=== PATIENT | female | born 1995 | race Two or more races ===

== ENCOUNTER 2018-06-19 09:41 | Emergency (ER) | payer SELFPAY ==
[~2018-06-19] VITALS: Ht 160 cm; Wt 104.8 kg
[2018-06-19 09:47] VITALS: BP 122/71; Ht 160 cm; Wt 104.8 kg
== END 2018-06-19 10:22 | disposition home or self-care (01) ==
LOC: ED 09:41
DX: L02.211 Cutaneous abscess of abdominal wall (principal)